=== PATIENT | male | born 1970 | race Caucasian/White ===

== ENCOUNTER → 2016-09-12 | Day surgery (SDC) | payer OTHER ==
[~2016-09-12] MED LIST: BISOPROLOL; BLOOD THINNER PO; FLONASE NASAL S16 GM NS; MELATONIN2 M1 PO; NEURONTIN300 MG PO; NORCO 325 MG-7.1 TAB PO; PRILOSEC10 MG PO; ST. JOSEPH81 M2 PO; TRAZADONE HYDR100 MG PO; XARELTO10 MG PO; ZOFRAN ODT8 M1 PO; ZYRTEC10 MG PO
== END ==
LOC: MSO 14:12
DX: K21.0 Gastro-esophageal reflux disease with esophagitis (principal); K44.9 Diaphragmatic hernia without obstruction or gangrene; K22.2 Esophageal obstruction; R13.10 Dysphagia, unspecified; R11.10 Vomiting, unspecified
CPT/HCPCS: 00740; A4649; J7120